=== PATIENT | male | born 1975 | race Caucasian/White ===

== ENCOUNTER 2019-10-07 13:44 | Emergency (ER) | payer OTHER ==
[~2019-10-07] VITALS: Ht 182.9 cm; Wt 85.7 kg
[2019-10-07] MEDS ORDERED: FLUORESCEIN OPHTHALMIC 1 MG STRIP ONE (15:47)
[2019-10-07] MEDS ORDERED: PROPARACAINE OPHTH 0.5%, 15ML ONE (15:47)
--- NOTE | 2019-10-07 15:48 | NUR ---
cleaner touch up worker: Pt ambulatory to ED room 35 from [facility] at this time Addendum: 10/07/19 at 1644 by JARET ED room 20
[2019-10-07 17:40] VITALS: BP 120/76
== END 2019-10-07 17:42 | disposition home or self-care (01) ==
LOC: ED 17:30
DX: S02.82XA Fracture of other specified skull and facial bones, left side, initial encounter for closed fracture (principal); W50.0XXA Accidental hit or strike by another person, initial encounter; Y93.89 Activity, other specified; Y92.89 Other specified places as the place of occurrence of the external cause; Y99.8 Other external cause status
CPT/HCPCS: 70450; 70486; 99284